=== PATIENT | male | born 1950 | race Caucasian/White ===

== ENCOUNTER 2020-09-05 13:21 | Outpatient (CLI) | payer BC | END 2020-09-05 13:22 | disposition home or self-care (01) | LOC: CSHCT 13:21 | PROVIDERS: ATTEND Family Medicine | DX: R19.06 Epigastric swelling, mass or lump (principal) | CPT/HCPCS: 74177; 82565 ==

== ENCOUNTER 2022-07-23 07:31 | Outpatient (CLI) | payer BC | END 2022-07-23 07:32 | disposition home or self-care (01) | LOC: CSHCT 07:31 | PROVIDERS: ATTEND Internal Medicine Gastroenterology | DX: R10.12 Left upper quadrant pain (principal); R10.33 Periumbilical pain; K76.89 Other specified diseases of liver; N28.1 Cyst of kidney, acquired; K21.00 Gastro-esophageal reflux disease with esophagitis, without bleeding; N20.0 Calculus of kidney; Z90.49 Acquired absence of other specified parts of digestive tract; N40.0 Benign prostatic hyperplasia without lower urinary tract symptoms | CPT/HCPCS: 74177; 82565 ==

== ENCOUNTER 2025-01-09 09:05 | Outpatient (CLI) | payer MEDICARE ==
[2025-01-09 10:54] LABS: Estimated GFR - POC 64.0
[2025-01-09] MEDS ORDERED: Iopamidol 300 61% 100 ML VIAL FS ONE (12:13)
== END 2025-01-09 09:06 | disposition home or self-care (01) ==
LOC: CSHCT 09:05
PROVIDERS: ATTEND Physician Assistant Medical
DX: R10.12 Left upper quadrant pain (principal); R10.13 Epigastric pain
CPT/HCPCS: 36415; 74177; 82565; Q9967